=== PATIENT | male | born 1990 | race Caucasian/White ===

== ENCOUNTER 2018-03-19 14:42 | Emergency (ER) | payer SELFPAY ==
[2018-03-19] MEDS ORDERED: KETOROLAC 30 MG/ML INJ ONE ×2 (14:59→15:03)
--- NOTE | 2018-03-19 15:25 | EDPHYS ---
Physician Documentation [facility] Name: Krystina Haynes Age: 27 yrs Sex: Male : 1990 Arrival Date: 03/19/2018 Time: 14:43 Bed 12 Private MD: ED Physician Enoch Velasquez HPI: 03/19 15:19 This 27 yrs old Male presents to ER via Ambulatory with complaints of Nausea, jr8 Sinus Congestion, Headache. 15:19 Patient stated that he has had sudden onset of sinus congestion, headache, fever, jr8 chills, cough that started yesterday. Had to leave work early due to nausea. Continues today . Onset: The symptoms/episode began/occurred acutely, yesterday. Severity of symptoms: At their worst the symptoms were mild in the emergency department the symptoms are unchanged. The patient has not experienced similar symptoms in the past. The patient has not recently seen a physician. Historical: - Allergies: 14:46 No Known Allergies; hj - Home Meds: 14:46 None [Active]; hj - PMHx: 14:46 None; hj - PSHx: 14:46 None; hj - Immunization history:: Pneumococcal vaccine is not up to date, Flu vaccine is not up to date. - Social history:: Smoking status: Patient uses tobacco products, smokes one-half pack cigarettes per day. ROS: 15:19 Eyes: Negative for injury, pain, redness, and discharge, Neck: Negative for injury, jr8 pain, and swelling, Cardiovascular: Negative for chest pain, palpitations, and edema, Back: Negative for injury and pain, MS/Extremity: Negative for injury and deformity, Skin: Negative for injury, rash, and discoloration, Neuro: Negative for weakness, numbness, tingling, and seizure. Positive for Headache 15:19 Constitutional: Positive for body aches, chills, fever. 15:19 ENT: Positive for rhinorrhea, sinus congestion, Negative for drainage from ear(s), ear pain, tinnitus, sinus pain, sore throat, difficulty swallowing, difficulty handling secretions, hoarseness. 15:19 Respiratory: Positive for cough, with yellow sputum, Negative for shortness of breath, wheezing. 15:19 Abdomen/GI: Positive for nausea, vomiting, Negative for abdominal pain, diarrhea, abdominal cramps, abdominal distension, anorexia, dysphagia, hematemesis, black/tarry stool, rectal pain, rectal bleeding, bowel incontinence, flatulence. Exam: 15:19 Head/Face: Normocephalic, atraumatic. No sinus tenderness Eyes: Pupils equal round jr8 and reactive to light, extra-ocular motions intact. Lids and lashes normal. Conjunctiva and sclera are non-icteric and not injected. Cornea within normal limits. Periorbital areas with no swelling, redness, or edema. ENT: Nares patent. No nasal discharge, no septal abnormalities noted. Tympanic membranes are normal and external auditory canals are clear. Oropharynx with no redness, swelling, or masses, exudates, or evidence of obstruction, uvula midline. Mucous membranes moist. Neck: Trachea midline, no thyromegaly or masses palpated, and no cervical lymphadenopathy. Supple, full range of motion without nuchal rigidity, or vertebral point tenderness. No Meningismus. Cardiovascular: Regular rate and rhythm with a normal S1 and S2. No gallops, murmurs, or rubs. Normal PMI, no JVD. No pulse deficits. Respiratory: Lungs have equal breath sounds bilaterally, clear to auscultation and percussion. No rales, rhonchi or wheezes noted. No increased work of breathing, no retractions or nasal flaring. Abdomen/GI: Soft, non-tender, with normal bowel sounds. No distension or tympany. No guarding or rebound. No evidence of tenderness throughout. Back: No spinal tenderness. No costovertebral tenderness. Full range of motion. Skin: Warm, dry with normal turgor. Normal color with no rashes, no lesions, and no evidence of cellulitis. MS/ Extremity: Pulses equal, no cyanosis. Neurovascular intact. Full, normal range of motion. Neuro: Awake and alert, GCS 15, oriented to person, place, time, and situation. Cranial nerves II-XII grossly intact. Motor strength 5/5 in all extremities. Sensory grossly intact. Cerebellar exam normal. Normal gait. Vital Signs: 14:45 BP 169 / 70; Pulse 80; Resp 18; Temp 98.8(TE); Pulse Ox 100% on R/A; Weight 111.58 kg; Height 6 ft. 4 in. (193.04 cm); 15:38 BP 155 / 78; Pulse 78; Resp 17; Temp 98.3(TE); Pulse Ox 98% ; rk2 14:45 Body Mass Index 29.94 (111.58 kg, 193.04 cm) hj MDM: 14:50 Patient medically screened. jr8 15:22 Data reviewed: vital signs, nurses notes, lab test result(s), and as a result, I will jr8 discharge patient. Data interpreted: Pulse oximetry: on room air is 100 %. Interpretation: normal. Counseling: I had a detailed discussion with the patient and/or guardian regarding: the historical points, exam findings, and any diagnostic results supporting the discharge/admit diagnosis, lab results, the need for outpatient follow up, a family practitioner, to return to the emergency department if symptoms worsen or persist or if there are any questions or concerns that arise at home. 15:22 ED course: Discussed with patient that this is more then likely viral syndrome. Will jr8 treat symptomatically but based on labs and physical exam, no antibiotics indicated at this time. Patient ok with this. . 03/19 14:57 Order name: Flu; Complete Time: 15:22 [facility] Administered Medications: 15:04 Drug: TORadol 60 mg Route: IM; Site: left deltoid; rk2 15:38 Follow up: Response: No adverse reaction; Pain is decreased rk2 Disposition: 19:49 Co-signature as Attending Physician, Enoch Velasquez MD. Disposition: 03/19/18 15:24 Discharged to Home. Impression: Acute upper respiratory infection, unspecified. - Condition is Stable. - Discharge Instructions: Upper Respiratory Infection, Adult, Viral Infections. - Prescriptions for ondansetron 4 mg Oral tablet,disintegrating - take 1 tablet by ORAL route every 8 hours As needed; 20 tablet. Prednisone 20 mg Oral Tablet - take 1 tablet by ORAL route once daily for 5 days; 5 tablet. Claritin- D 24 Hour 10-240 mg Oral Tablet Sustained Release 24 hr - take 1 tablet by ORAL route once daily As needed; 20 tablet. Albuterol Sulfate 90 mcg/actuation - inhale 1-2 puff by INHALATION route every 4-6 hours; 1 Inhaler. - Medication Reconciliation Form, Thank You Letter, Antibiotic Education, Prescription Opioid Use, Work release form form. - Follow up: Private Physician; When: 1 week; Reason: If symptoms return, Recheck today's complaints, Continuance of care, Re-evaluation by your physician. - Problem is new. - Symptoms have improved. Signatures: Dispatcher [employer] EDMS Shree Beach PA PA jr8 Wilfred David, RN RN Enoch Velasquez MD MD gs Kidder, Rhonda, RN RN rk2 Corrections: (The following items were deleted from the chart) 15:40 15:24 03/19/2018 15:24 Discharged to Home. Impression: Acute upper respiratory rk2 infection, unspecified. Condition is Stable. Forms are Medication Reconciliation Form, Thank You Letter, Antibiotic Education, Prescription Opioid Use. Follow up: Private Physician; When: 1 week; Reason: If symptoms return, Recheck today's complaints, Continuance of care, Re-evaluation by your physician. Problem is new. Symptoms have improved. jr8
--- NOTE | 2018-03-19 15:25 | ER ---
Nurse's Notes [facility] Name: Krystina Haynes Age: 27 yrs Sex: Male : 1990 Arrival Date: 03/19/2018 Time: 14:43 Bed 12 Private MD: Diagnosis: Acute upper respiratory infection, unspecified Presentation: 03/19 14:43 Presenting complaint: Patient states: i have this head ache and congestion for days hj now; now im nauseated; reports bilateral ear pain;. Transition of care: patient was not received from another setting of care. Onset of symptoms was March 19, 2018. Initial Sepsis Screen: Does the patient meet any 2 criteria? No. Patient's initial sepsis screen is negative. Does the patient have a suspected source of infection? No. Patient's initial sepsis screen is negative. Care prior to arrival: None. 14:43 Method Of Arrival: Ambulatory 14:43 Acuity: JOSE 4 hj Triage Assessment: 14:45 General: Appears in no apparent distress. uncomfortable, Behavior is calm, cooperative, hj appropriate for age. Pain: Complains of pain in head. GI: Reports nausea. Historical: - Allergies: 14:46 No Known Allergies; hj - Home Meds: 14:46 None [Active]; hj - PMHx: 14:46 None; hj - PSHx: 14:46 None; hj - Immunization history:: Pneumococcal vaccine is not up to date, Flu vaccine is not up to date. - Social history:: Smoking status: Patient uses tobacco products, smokes one-half pack cigarettes per day. Screenin:07 Abuse screen: Denies threats or abuse. Nutritional screening: No deficits noted. rk2 Tuberculosis screening: No symptoms or risk factors identified. Fall Risk None identified. Assessment: 14:45 GI: Abdomen is non-distended. hj 15:09 General: Appears in no apparent distress. slender, well groomed, well developed, well rk2 nourished, Behavior is calm, cooperative. Pain:. Pain: Complains of pain in headache. Neuro: Level of Consciousness is alert, obeys commands, Oriented to person, place, time, situation. Respiratory: Respiratory: Airway is patent Respiratory effort is even, unlabored, Respiratory pattern is regular, symmetrical. Derm: Skin is pink, warm \T\ dry. Vital Signs: 14:45 BP 169 / 70; Pulse 80; Resp 18; Temp 98.8(TE); Pulse Ox 100% on R/A; Weight 111.58 kg; hj Height 6 ft. 4 in. (193.04 cm); 15:38 BP 155 / 78; Pulse 78; Resp 17; Temp 98.3(TE); Pulse Ox 98% ; rk2 14:45 Body Mass Index 29.94 (111.58 kg, 193.04 cm) hj ED Course: 14:43 Patient arrived in ED. sb2 14:44 Triage completed. hj 14:45 Arm band placed on right wrist. hj 14:50 Shree Beach PA is PHCP. jr8 14:50 Enoch Velasquez MD is Attending Physician. jr8 14:54 Ml Encinas, VIGNESH is Primary Nurse. rk2 15:04 Flu Sent. rk2 15:07 Patient has correct armband on for positive identification. Bed in low position. Call rk2 light in reach. 15:39 No provider procedures requiring assistance completed. Patient did not have IV access rk2 during this emergency room visit. Administered Medications: 15:04 Drug: TORadol 60 mg Route: IM; Site: left deltoid; rk2 15:38 Follow up: Response: No adverse reaction; Pain is decreased rk2 Outcome: 15:24 Discharge ordered by . jr8 15:39 Discharged to home ambulatory. rk2 15:39 Condition: improved 15:39 Discharge instructions given to patient, Prescriptions given X 4. 15:40 Patient left the ED. rk2 Signatures: Shree Beach PA PA jr8 Wilfred David RN RN Ml Encinas RN RN rk2 Marisel Singh sb2 Corrections: (The following items were deleted from the chart) 14:46 14:43 Presenting complaint: Patient states: i have this head ache and congestion for hj days now; now im nauseated; hj 14:47 14:45 86.18 kg; Height 5 ft. 11 in.; BMI: 26.5; hj hj 14:48 14:45 Pulse 80bpm; Resp 18bpm; Pulse Ox 100% RA; Temp 98.8F Temporal; 111.58 kg; Height hj 6 ft. 4 in.; BMI: 29.9; hj
== END 2018-03-19 15:40 | disposition home or self-care (01) ==
LOC: ER 14:42
DX: J06.9 Acute upper respiratory infection, unspecified (principal); F17.210 Nicotine dependence, cigarettes, uncomplicated
CPT/HCPCS: 87804; 96372; 99283